=== PATIENT | female | born 1965 | race Caucasian/White ===

== ENCOUNTER 2020-08-22 18:43 | Emergency (ER) | payer SELFPAY ==
[2020-08-22 18:56] VITALS: BP 162/91; PULSE 96; RESP 16; TEMP 37.2; O2SAT 98; BMI 17.4
--- NOTE | 2020-08-22 19:05 | PC.NURSE ---
TDAP GIVEN IN RIGHT DELTOID AT THIS TIME. LOT #[id number] EXP. 05/12/22
[2020-08-22 19:52] VITALS: BP 162/91; PULSE 96; RESP 16; TEMP 37.2; O2SAT 98
--- NOTE | 2020-08-22 20:04 | HMH.EDUTC ---
[facility] [place] Disposition Clinical Impression: Laceration of left index finger Qualifiers: Encounter type: initial encounter Damage to nail status: without damage Foreign body presence: without foreign body Qualified Code(s): S61.211A - Laceration without foreign body of left index finger without damage to nail, initial encounter Disposition: Home, Self-Care Condition on Discharge: Good Instructions: How to Care for a Laceration After Repair, Laceration Repair Additional Instructions: Keep the wound clean and dry. Keep a dressing on it if she is going to be getting it dirty. Watch the for signs of infection, such as redness, swelling, drainage, fever. etc. Give tylenol or ibuprofen for pain. Follow up with her regular doctor. Return in 7 to 10 days to have the sutures removed. Prescriptions: cephALEXin [Keflex 500mg Cap] 500 mg PO Q6H 7 Days #28 cap Transmission Status: Received by [facility] Referrals: PCP,No [Non-Staff] - Time of Disposition: 20:11 Medical Decision Making - Medical Records Medical records reviewed: No: I reviewed the patient's medical records. - Sadiq Inquiry Pt receiving controlled substance: No Vital Signs: 08/22/20 18:56 08/22/20 19:52 Temperature 99.0 F 99.0 F Temperature Source Oral Pulse Rate 96 H Pulse Rate [Right] 96 H Respiratory Rate 16 16 Blood Pressure 162/91 H Blood Pressure [Right Arm] 162/91 H Blood Pressure Mean [Right Arm] 114 Blood Pressure Position [Right Arm] Sitting 02 Sat by Pulse Oximetry 98 Oxygen Delivery Method Room Air Orders (Tests/Meds): ED MEDICATIONS Discontinued Medications Generic Name Dose Route Start Last Admin Trade Name Ronen PRN Reason Stop Dose Admin Ibuprofen 800 mg 08/22/20 20:05 08/22/20 20:05 Ibuprofen 400 Mg Tablet PO 08/22/20 20:06 800 mg ONCE ONE Administration [facility] [place] HPI - General Stated complaint: AO 08/22 @1744 lac to l hand index finger Time Seen by Provider: 08/22/20 20:04 Mode of Arrival: Ambulatory Source of Information: Patient Limitations: No Limitations Description of Symptoms (Recalled from Triage Doc. by RN): Pt has laceration to left index from knife, bleeding controlled - History of Present Illness Provider Complaint: She states that she was trying to open a package with a steak knife when she slipped and cut her left index finger. The laceration is close to the end of the finger on the palmar and medial aspect. - Related Data Previous Rx's Medication Instructions Recorded cephALEXin [Keflex 500mg Cap] 500 mg PO Q6H 7 Days #28 cap 08/22/20 Allergies Allergy/AdvReac Type Severity Reaction Status Date / Time No Known Allergies Allergy Verified 08/22/20 19:01 [facility] History - Hepatitis A Screen Attestation statement:: This patient has been screened for Hepatitis A risk factors. I have reviewed the patient's past medical history: Yes ROS Obtained: Yes All systems reviewed & no additional complaints - Constitutional Constitutional: Reports system reviewed and no additional complaints, except as docu - Integumentary/Breasts Skin/Breast: Reports as per HPI Physical Exam - General General appearance: alert, in no apparent distress - Head Head exam: atraumatic, normocephalic, normal inspection - Eye Eye exam: Present: normal appearance, PERRL, EOMI - ENT ENT exam: Present: normal exam, normal oropharynx, mucous membranes moist, TM's normal bilaterally, normal external ear exam - Neck Neck exam: Present: normal inspection, full ROM, trachea midline. Absent: meningismus, lymphadenopathy - Chest Chest inspection: Present: normal inspection, symmetric chest wall rise. Absent: tenderness - Respiratory Respiratory exam: Present: normal lung sounds bilaterally. Absent: respiratory distress - Cardiovascular Cardiovascular exam: Present: regular rate, normal rhythm. Absent: JVD - Abdominal Exam Abdominal exam: Present: soft, n
== END 2020-08-22 20:16 | disposition home or self-care (01) ==
PROVIDERS: Emergency Provider Nurse Practitioner Family; PCP Family Medicine
DX: S61.211A Laceration without foreign body of left index finger without damage to nail, initial encounter (principal); W26.0XXA Contact with knife, initial encounter; Y92.010 Kitchen of single-family (private) house as the place of occurrence of the external cause; Z23 Encounter for immunization
CPT/HCPCS: 12001; 90471; 99203

== ENCOUNTER 2020-09-01 11:24 | Emergency (ER) | payer OTHER, SELFPAY ==
[2020-09-01 11:40] VITALS: BP 135/80; PULSE 98; RESP 18; TEMP 36.4; O2SAT 99; BMI 17.4
[2020-09-01 11:45] VITALS: BP 135/80; PULSE 98; RESP 18; TEMP 36.4; O2SAT 99
== END 2020-09-01 11:46 | disposition home or self-care (01) ==
PROVIDERS: Emergency Provider Nurse Practitioner Family; PCP Family Medicine
DX: S61.211D Laceration without foreign body of left index finger without damage to nail, subsequent encounter (principal)

== ENCOUNTER 2020-09-11 12:50 | Emergency (ER) | payer SELFPAY ==
[2020-09-11 13:05] VITALS: BP 154/97; PULSE 91; RESP 14; TEMP 36.2; O2SAT 99; BMI 17.4
--- NOTE | 2020-09-11 13:22 | HMH.EDUTC ---
[facility] [place] Disposition Clinical Impression: URI (upper respiratory infection) Qualifiers: URI type: unspecified URI Qualified Code(s): J06.9 - Acute upper respiratory infection, unspecified Disposition: Home, Self-Care Condition on Discharge: Good Instructions: DI for COVID-19 (Suspected or Confirmed ), Coronavirus Disease 2019, Preventing the Spread of Coronavirus Discharge Instructions, Sore Throat, DI for Sinusitis Additional Instructions: *Monitor Temp, Over the counter Motrin or Tylenol as directed/as needed Tylenol every 4 hours and Motrin every 6 hours (as long as your family doctor has told you that you can take it) for fever or pain. and straight to ER if unable to lower temp less than 101.0 after medication given *Warm salt water gargles may help to soothe the throat *Throat Lozenges *Warm fluids like tea with honey may help to soothe the throat *Sleep elevated *Humidifier/Vaporizer Follow up IMMEDIATELY for new or worsening symptoms or no Noticeable improvement over the next 48-72 hours. 911 for difficulty breathing or swallowing You were tested for today for COVID19 your test result should be back in the next 24-48 hours, you may call to the [facility] to see if your test results are back in the next 48 hours [phone] [facility] hours are 9am-9pm You was given a handout with instructions for Self Quarantine and Self isolation for while you wait on test results and what to do if they are positive If you are positive the Health Dept will be contacting you also Prescriptions: Fluticasone Propionate [Flonase 50mcg nasal spray 16gm] 1 spr NS DAILY #1 bottle Transmission Status: [facility] Azithromycin [Z-Wilmer 250mg Tab] 250 mg PO DIRECTED #6 tab Transmission Status: Pending to [facility] Referrals: Rasta Constantino [Primary Care Provider] - As needed Forms: Work/School Release Time of Disposition: 13:38 Medical Decision Making - Sadiq Inquiry Pt receiving controlled substance: No Sadiq was queried for this patient: No Vital Signs: 09/11/20 13:05 Temperature 97.2 F L Temperature Source Oral Pulse Rate [Right Brachial] 91 H Respiratory Rate 14 Blood Pressure [Right Arm] 154/97 H Blood Pressure Mean [Right Arm] 116 Blood Pressure Source [Right Arm] Automatic Cuff Blood Pressure Position [Right Arm] Sitting 02 Sat by Pulse Oximetry 99 Oxygen Delivery Method Room Air - Lab Data Lab results reviewed: Yes: I reviewed the patient's lab results. Orders (Tests/Meds): ORDERS Category Date Time Status Covid-19 Nasal PCR Sendout P&C Routine Lab 09/11/20 12:56 Ordered [facility] [place] HPI - General Stated complaint: covid test Time Seen by Provider: 09/11/20 13:22 Mode of Arrival: Ambulatory Source of Information: Patient Limitations: No Limitations Description of Symptoms (Recalled from Triage Doc. by RN): PATIENT C/O HEADACHE, BODY ACHES, SOA, AND COUGH SINCE FRIDAY. REQUESTING COVID TEST HEENT Symptoms (Recalled from RN notes): No Resp Symptoms (Recalled from RN notes): No Skin Symptoms (Recalled from RN notes): No MS Symptoms (Recalled from RN notes): No Functional Status (Recalled from RN notes): WNL - History of Present Illness Provider Complaint: Patient state that she was recently around someone that has tested positive for COVID States that she has been having body aches, chills, feeling feverish, loss of smell, sinus pain and pressure and sore throat for several days so she came in to get checked - Related Data Previous Rx's Medication Instructions Recorded cephALEXin [Keflex 500mg Cap] 500 mg PO Q6H 7 Days #28 cap 08/22/20 Azithromycin [Z-Wilmer 250mg Tab] 250 mg PO DIRECTED #6 tab 09/11/20 Fluticasone Propionate [Flonase 1 spr NS DAILY #1 bottle 09/11/20 50mcg nasal spray 16gm] Allergies Allergy/AdvReac Type Severity Reaction Status Date / Time No Known Allergies Allergy Verified 08/22/20 19:01 - Worker's Comp Is this a Worker's Comp
[2020-09-11 13:43] VITALS: BP 154/97; PULSE 91; RESP 14; TEMP 36.2; O2SAT 99
[2020-09-11 21:06] LABS: UTC Strep Screen (Rapid) Negative (Negative)
[2020-09-12 09:59] LABS: Covid-19 Nasal PCR Sendout P&C NEGATIVE
== END 2020-09-11 13:47 | disposition home or self-care (01) ==
PROVIDERS: Emergency Provider Nurse Practitioner; PCP Family Medicine
DX: Z20.822 Contact with and (suspected) exposure to COVID-19 (principal); J06.9 Acute upper respiratory infection, unspecified
CPT/HCPCS: 87880; 99202; G0463; U0004

== ENCOUNTER 2023-10-20 12:29 | Emergency (ER) | payer OTHER, SELFPAY ==
[2023-10-20 12:29] VITALS: BP 113/59; PULSE 103; RESP 17; TEMP 37.3; O2SAT 95; BMI 19.3
--- NOTE | 2023-10-20 13:17 | PC.NURSE ---
Alissa Sabillon rounded on pt. No needs voiced. Call light within reach.
[2023-10-20 13:21] LABS: Basophils % 0.2 % (0.1-2.0); Eosinophils # 0.1 K/mm3 (0.0-0.4); Eosinophils % 0.6 % (0.1-12.0); Hematocrit 42.2 % (37.0-47.0); Hemoglobin 13.9 g/dL (12.2-16.2); Lymphocytes # 0.5 K/mm3 (0.7-4.5); Lymphocytes % 5.2 % (10-50); MANUAL DIFFERENTIAL MANUAL DIFFERENTIAL (MANUAL DIFF); Mean Corpuscular HGB Conc 32.9 g/dL (31.8-35.4); Mean Corpuscular Hemoglobin 32.3 pg (27.0-31.2); Mean Corpuscular Volume 98.2 fl (81-99); Mean Platelet Volume 7.6 fl (7.4-10.4); Monocytes # 0.1 K/mm3 (0.1-1.0); Monocytes % 0.9 % (1.7-9.3); Neutrophils # 8.2 K/mm3 (1.8-7.8); Neutrophils % 93.2 % (37.0-80.0); Platelet Count 275 K/mm3 (142-424); Red Cell Distribution Width 12.9 % (11.5-17.5); White Blood Count 8.8 K/mm3 (4.8-10.8)
[2023-10-20 13:27] LABS: Chloride 108 mmol/L (98-107); Potassium 3.8 mmoL/L (3.5-5.1); Sodium 136 mmol/L (136-145)
[2023-10-20] MEDS: LACTATED RINGERS 1000ML 1,000 ML 999 ML IV (13:29)
[2023-10-20 13:30] LABS: Alanine Aminotransferase 33 U/L (12-78); Albumin Level 3.7 g/dl (3.5-5.0); Albumin/Globulin Ratio 1.3 (1.1-1.8); Alkaline Phosphatase 86 U/L (38-126); Anion Gap 8.8 mEq/L (5-15); Aspartate Amino Transferase 33 U/L (14-36); Bilirubin,Total 0.7 mg/dl (0.2-1.3); Blood Urea Nitrogen 17 mg/dl (7-17); Calcium 8.7 mg/dl (8.4-10.2); Carbon Dioxide 23 mmol/L (22.0-30.0); Creatinine Clearance Estimated 57 mL/min (50-200); Estimated Glomerular Filt Rate 73 ml/min (>60); GFR (African American) 89 ML/MIN (>60); Globulin 2.8 g/dL (1.3-3.2); Glucose 108 mg/dl (74-100); Lipase 97 U/L (23-300); Lymphocytes % 6 % (10-50); Neutrophils % 94 % (42-76); Platelet Estimate Normal; RBC Morphology Normal; Total Cells Counted 100; Total Protein,Serum 6.5 g/dl (6.3-8.2)
[2023-10-20] MEDS: ONDANSETRON 4MG/2ML VIAL 4 MG IV (13:30)
[2023-10-20] MEDS: KETOROLAC 30MG/ML VIAL 15 MG IV (13:30)
[2023-10-20 14:00] VITALS: BP 91/60; PULSE 95; O2SAT 98
[2023-10-20 14:06] LABS: Microscopic, Urine URINE MICROSCOPIC (MICROSCOPIC)
[2023-10-20 14:08] LABS: Appearance,Urine CLEAR (Clear); Bilirubin,Urine Negative (Negative); Blood, Urine Negative (Negative); Color,Urine YELLOW (Yellow); Glucose,Urine (UA) Negative (Negative); Ketones,Urine Negative (Negative); Leukocyte Esterase,Urine TRACE (Negative); Nitrate,Urine POSITIVE (Negative); PH,Urine 7.5 (5.0-8.5); Protein,Urine Negative (Negative); Specific Gravity, Urine 1.015 (1.005-1.030); Urobilinogen,Urine 0.2 EU/dl (0.2)
[2023-10-20 14:30] LABS: Bacteria,Urine 2+ /lpf
--- NOTE | 2023-10-20 15:00 | CT_ITS ---
FINAL REPORT TECHNIQUE: Axial images through the abdomen and pelvis were performed without contrast.This study was performed with techniques to keep radiation doses as low as reasonably achievable, (ALARA). Individualized dose reduction techniques using automated exposure control or adjustment of mA and/or kV according to the patient's size were employed. CLINICAL HISTORY: hypovolemia, hx stone. FINDINGS: ABDOMEN: There are bilateral lower lobe groundglass airspace opacities, left greater than right which may represent atelectasis. Infectious/inflammatory process not excluded. The heart size is normal. Unenhanced liver is homogeneous. Gallbladder is present. The spleen is normal. No adrenal mass is identified. The aorta is normal in caliber. There is no significant free fluid or adenopathy. There is a large calcification in the left renal hilum measuring at least 36 mm. A separate large stone is seen in the lower pole measuring 17 mm. There is mild to moderate left hydronephrosis. Air is seen within the left ureter and left renal collecting system. Please correlate for recent instrumentation. If no recent instrumentation performed, infectious process not excluded. There are nonobstructing right renal stones. There is no right hydronephrosis. PELVIS: The appendix is not identified. There are no secondary findings of appendicitis. Uterus is present. The urinary bladder is unremarkable. There is no significant free fluid or adenopathy. IMPRESSION: Large obstructing staghorn calculus in the left renal collecting system. Air within the left renal collecting system which may be related to recent procedure. Recommend clinical correlation. Nonobstructing right renal stones. Reviewed, Interpreted and Dictated by Sol Lay MD Transcribed by Johana Babb Authenticated and [facility]
[2023-10-20 16:26] LABS: Lactic Acid 3.1 mmol/L (0.7-2.1)
--- NOTE | 2023-10-20 16:27 | PC.NURSE ---
Addendum entered by Elaine Vaughan, EMT 10/20/23 16:28: put pt on waiting list will call back when bed is available Original Note: called [facility] for urology transfer
[2023-10-20] MEDS: CEFTRIAXONE 1 GM 1 GM in 0.9 % SODIUM CHLORIDE 50 ML IV (16:29)
[2023-10-20 16:30] VITALS: BP 109/70; PULSE 82; O2SAT 97
--- NOTE | 2023-10-20 16:40 | PC.NURSE ---
placed call to [facility] for urology, had images powershared, they will call back.
--- NOTE | 2023-10-20 16:48 | HMH.EDGENADL ---
Discharge Plan Disposition Patient Disposition: Xfer Other Chief Complaint: Abdominal Pain Prescriptions Prescriptions: No Action cefdinir 300 mg capsule 300 mg PO BID 10 Days Qty: 20 0RF methylprednisolone [Medrol (Wilmer)] 4 mg tablets,dose pack 4 mg PO QID Qty: 21 0RF cephalexin 500 MG capsule 500 mg PO Q6H 7 Days Qty: 28 0RF azithromycin 250 MG tablet 250 mg PO DIRECTED Qty: 6 0RF Rx Instructions: Take two (2) tablets on day #1, then one (1) tablet day #2 thru #5 fluticasone propionate 120 SPR/BOT bottle 1 spr NS DAILY Qty: 1 0RF Rx Instructions: Each nostril daily Referrals Follow up/Referrals: Provider,Referral, [Primary Care Provider] - See instructions Clinical Impressions Clinical Impression: Staghorn calculus, Hydronephrosis with renal and ureteral calculous obstruction, Sepsis, Emphysematous pyelonephritis of left kidney Stand Alone Forms Stand Alone Forms: Transfer Record - ED Instructions Patient Instructions: DI for Acute Abdominal Pain Discharge ED Provider: Sonu James General Adult HPI <Sonu James MD - Last Filed: 10/20/23 16:53> General Chief complaint: Abdominal Pain Stated complaint: Flank pain Time Seen by Provider: 10/20/23 13:16 Mode of Arrival: EMS Source of Information: Patient and EMS Limitations: No Limitations Description of Symptoms (Recalled from ER Triage Doc. by RN): pt presents to ED with c/o abdominal pain. symptoms began . pain located in left hip, fever, chills. History of Present Illness HPI narrative: Patient presents with several days of fatigue, left-sided flank pain, gradual in onset, worsening, with associated chills. She states she has a history of urolithiasis that has required lithotripsy in the past. She states she has a headache, describes chills, decreased p.o. intake. No syncope or presyncope. She received Toradol en route and symptoms improved to some degree. Denies any recent antibiotic use. Pain is most pronounced in her left lower quadrant at this time. Related Data Previous Rx's Medication Instructions Recorded cephalexin 500 mg capsule 500 mg PO Q6H 7 days #28 caps 08/22/20 azithromycin 250 mg tablet 250 mg PO DIRECTED #6 tabs 09/11/20 fluticasone propionate 50 1 spr NS DAILY ##1 09/11/20 mcg/actuation nasal spray,suspension cefdinir 300 mg capsule 300 mg PO BID 10 days #20 caps 06/12/23 methylprednisolone 4 mg tablets in 4 mg PO QID 4 doses #21 tabs 06/12/23 a dose pack (Medrol (Wilmer)) Allergies Allergy/AdvReac Type Severity Reaction Status Date / Time No Known Allergies Allergy Verified 08/22/20 19:01 [facility] <Sonu James MD - Last Filed: 10/20/23 16:53> [facility] Disclaimer: The information contained in this section may have been updated after the patient was seen, as this information can be updated by other users. Social History Smoking Status: Current every day smoker alcohol intake: never current occupational status: other Travel in the last 8 weeks: None <Sonu James MD - Last Filed: 10/20/23 16:53> ROS Obtained: Yes All systems reviewed & no additional complaints except as documented Physical Exam <Sonu James MD - Last Filed: 10/20/23 16:53> General General appearance: alert and in no apparent distress Respiratory Respiratory exam: Present normal lung sounds bilaterally; Absent respiratory distress Cardiovascular Cardiovascular exam: Present regular rate and normal rhythm Abdominal Exam Abdominal exam: Present soft and tenderness (Left CVA tenderness to palpation) Neurological Exam Neurological exam: Present alert and oriented X3 Medical Decision Making <Sonu James MD - Last Filed: 10/20/23 16:53> Sadiq Inquiry Pt receiving controlled substance: No Vital Signs: 10/20/23 12:29 10/20/23 14:00 Temperature 99.2 F Temperature Source Oral Pulse Rate 95 H Pulse Rate [Left Radial] 103 H Respiratory Rate 17 Blood Pressure 91/60 L Blood Pressure [Right Arm] 113/59 L Blood Pressure Mean [Right Arm] 77 02 Sat by Pulse Oximetry 95 98 Oxygen Delivery Method Room Air Room Air Lab Data Lab Results 10/20/23 12:51: WBC 8.8, RBC 4.30, Hgb 13.9, Hct 42.2, MCV 98.2, MCH 32.3 H, MCHC 32.9, RDW 12.9, Plt Count 275, MPV 7.6, Neut % (Auto) 93.2 H, Lymph % (Auto) 5.2 L, [place] % (Auto) 0.9 L, Eos % (Auto) 0.6, Baso % (Auto) 0.2, Neut # (Auto) 8.2 H, Lymph # (Auto) 0.5 L, [place] # (Auto) 0.1, Eos # (Auto) 0.1, Baso # (Auto) 0.0, Total Counted 100, Neutrophils % (Manual) 94 H, Lymphocytes % (Manual) 6 L, Platelet Estimate Normal, RBC Morphology Normal, Sodium 136, Potassium 3.8, Chloride 108 H, Carbon Dioxide 23, Anion Gap 8.8, BUN 17, Creatinine 0.80, Estimated Creat Clear 57, Estimated GFR 73, Est GFR ( Amer) 89, Glucose 108 H, Lactate 3.1 H, Calcium 8.7, Total Bilirubin 0.7, AST 33, ALT 33, Alkaline Phosphatase 86, Total Protein 6.5, Albumin 3.7, Globulin 2.8, Albumin/Globulin Ratio 1.3, Lipase 97 10/20/23 14:00: Urine Color Yellow, Urine Appearance Clear, Urine pH 7.5, Ur Specific [place] 1.015, Urine Protein Negative, Urine Glucose (UA) Negative, Urine Ketones Negative, Urine Blood Negative, Urine Nitrate Positive, Urine Bilirubin Negative, Urine Urobilinogen 0.2, Ur Leukocyte Esterase Trace, Urine RBC None, Urine WBC 3-5, Ur Squamous Epith Cells 5-10, Urine Bacteria 2+ 10/20/23 12:51 10/20/23 12:51 Orders (Tests/Meds): ED MEDICATIONS Generic Name Dose Route Start Last Admin Trade Name Freq PRN Reason Stop Dose Admin Ceftriaxone Sodium 1 gm/ 50 mls @ 100 mls/hr 10/20/23 16:15 10/20/23 16:29 Sodium Chloride IV 10/30/23 16:14 100 mls/hr Q24H JOSE Administration Discontinued Medications Generic Name Dose Route Start Last Admin Trade Name Freq PRN Reason Stop Dose Admin Lactated Ringer's 1,000 mls @ 999 mls/hr 10/20/23 13:14 10/20/23 13:29 Lactated Ringer's 1000 Ml Bag IV 10/20/23 14:14 999 mls/hr .Q1H1M ONE Administration Ketorolac Tromethamine 15 mg 10/20/23 13:18 10/20/23 13:30 Ketorolac 30mg/Ml Vial IV 10/20/23 13:19 15 mg ONCE ONE Administration Ondansetron HCl 4 mg 10/20/23 13:18 10/20/23 13:30 Ondansetron 4mg/2ml Vial IV 10/20/23 13:19 4 mg ONCE ONE Administration ORDERS Category Date Time Status CT abdomen pelvis wo con Stat Cat Scan 10/20/23 15:00 Completed CBC w/Auto Diff [Complete Blood Count Auto Diff] Stat Lab 10/20/23 12:51 Completed CMP [Comprehensive Metabolic Panel] Stat Lab 10/20/23 12:51 Completed Lactic Acid Stat Lab 10/20/23 12:51 Completed Lipase Stat Lab 10/20/23 12:51 Completed Urinalysis and Microscopic Stat Lab 10/20/23 14:00 Completed Blood Culture Stat Micro 10/20/23 16:27 Received Urine Culture Stat Micro 10/20/23 14:00 Received Medical Decision Narrative: Patient with history and exam per above presenting with left-sided flank pain in the setting of known history of urolithiasis. As mentioned above she describes preceding history of chills and has had insidious course of illness. She arrives to the emergency department in no acute distress, pain improved prior to arrival however hypotensive, regular rate and rhythm, afebrile at this time. Patient was treated with 1 L IV fluids, Toradol, Zofran with improvement of symptoms. Initial workup included CBC, CMP, urinalysis, these were independently visualized and interpreted by me revealing no leukocytosis, creatinine within normal limits, urinalysis with no hematuria, however mild pyuria, bacteriuria, and urine nitrite positive. CT abdomen and pelvis was ordered, completed at time of signout and shows staghorn calculus in the left renal pelvis per my independent visualization and interpretation. Given concern for infected urolithiasis, patient was initiated with ceftriaxone, blood cultures and urine culture sent. Care was transferred to incoming physician Dr. Mon. <Sonali Mon MD - Last Filed: 10/20/23 16:59> Vital Signs: 10/20/23 12:29 10/20/23 14:00 Temperature 99.2 F Temperature Source Oral Pulse Rate 95 H Pulse Rate [Left Radial] 103 H Respiratory Rate 17 Blood Pressure 91/60 L Blood Pressure [Right Arm] 113/59 L Blood Pressure Mean [Right Arm] 77 02 Sat by Pulse Oximetry 95 98 Oxygen Delivery Method Room Air Room Air Lab Data Lab results reviewed: Yes I reviewed the patient's lab results. Lab Results 10/20/23 12:51: WBC 8.8, RBC 4.30, Hgb 13.9, Hct 42.2, MCV 98.2, MCH 32.3 H, MCHC 32.9, RDW 12.9, Plt Count 275, MPV 7.6, Neut % (Auto) 93.2 H, Lymph % (Auto) 5.2 L, [place] % (Auto) 0.9 L, Eos % (Auto) 0.6, Baso % (Auto) 0.2, Neut # (Auto) 8.2 H, Lymph # (Auto) 0.5 L, [place] # (Auto) 0.1, Eos # (Auto) 0.1, Baso # (Auto) 0.0, Total Counted 100, Neutrophils % (Manual) 94 H, Lymphocytes % (Manual) 6 L, Platelet Estimate Normal, RBC Morphology Normal, Sodium 136, Potassium 3.8, Chloride 108 H, Carbon Dioxide 23, Anion Gap 8.8, BUN 17, Creatinine 0.80, Estimated Creat Clear 57, Estimated GFR 73, Est GFR ( Amer) 89, Glucose 108 H, Lactate 3.1 H, Calcium 8.7, Total Bilirubin 0.7, AST 33, ALT 33, Alkaline Phosphatase 86, Total Protein 6.5, Albumin 3.7, Globulin 2.8, Albumin/Globulin Ratio 1.3, Lipase 97 10/20/23 14:00: Urine Color Yellow, Urine Appearance Clear, Urine pH 7.5, Ur Specific [place] 1.015, Urine Protein Negative, Urine Glucose (UA) Negative, Urine Ketones Negative, Urine Blood Negative, Urine Nitrate Positive, Urine Bilirubin Negative, Urine Urobilinogen 0.2, Ur Leukocyte Esterase Trace, Urine RBC None, Urine WBC 3-5, Ur Squamous Epith Cells 5-10, Urine Bacteria 2+ Orders (Tests/Meds): ED MEDICATIONS Generic Name Dose Route Start Last Admin Trade Name Freq PRN Reason Stop Dose Admin Ceftriaxone Sodium 1 gm/ 50 mls @ 100 mls/hr 10/20/23 16:15 10/20/23 16:29 Sodium Chloride IV 10/30/23 16:14 100 mls/hr Q24H JOSE Administration Discontinued Medications Generic Name Dose Route Start Last Admin Trade Name Ronen PRN Reason Stop Dose Admin Lactated Ringer's 1,000 mls @ 999 mls/hr 10/20/23 13:14 10/20/23 13:29 Lactated Ringer's 1000 Ml Bag IV 10/20/23 14:14 999 mls/hr .Q1H1M ONE Administration Ketorolac Tromethamine 15 mg 10/20/23 13:18 10/20/23 13:30 Ketorolac 30mg/Ml Vial IV 10/20/23 13:19 15 mg ONCE ONE Administration Ondansetron HCl 4 mg 10/20/23 13:18 10/20/23 13:30 Ondansetron 4mg/2ml Vial IV 10/20/23 13:19 4 mg ONCE ONE Administration ORDERS Category Date Time Status CT abdomen pelvis wo con Stat Cat Scan 10/20/23 15:00 Completed CBC w/Auto Diff [Complete Blood Count Auto Diff] Stat Lab 10/20/23 12:51 Completed CMP [Comprehensive Metabolic Panel] Stat Lab 10/20/23 12:51 Completed Lactic Acid Stat Lab 10/20/23 12:51 Completed Lipase Stat Lab 10/20/23 12:51 Completed Urinalysis and Microscopic Stat Lab 10/20/23 14:00 Completed Blood Culture Stat Micro 10/20/23 16:27 Received Urine Culture Stat Micro 10/20/23 14:00 Received Medical Decision Narrative: Patient with history and exam per above presenting with left-sided flank pain in the setting of known history of urolithiasis. As mentioned above she describes preceding history of chills and has had insidious course of illness. She arrives to the emergency department in no acute distress, pain improved prior to arrival however hypotensive, regular rate and rhythm, afebrile at this time. Patient was treated with 1 L IV fluids, Toradol, Zofran with improvement of symptoms. Initial workup included CBC, CMP, urinalysis, these were independently visualized and interpreted by me revealing no leukocytosis, creatinine within normal limits, urinalysis with no hematuria, however mild pyuria, bacteriuria, and urine nitrite positive. CT abdomen and pelvis was ordered, completed at time of signout and shows staghorn calculus in the left renal pelvis per my independent visualization and interpretation. Given concern for infected urolithiasis, patient was initiated with ceftriaxone, blood cultures and urine culture sent. Care was transferred to incoming physician Dr. Mon. This is Dr. Mon I took over from Dr. Richter at 3 PM. I went evaluated the patient and she was hypotensive 80s over 60s told me she been having fevers and chills and left flank pain. I personally interpreted the patient CT scan which shows that there is a large staghorn calculus also has some air in her collecting system she has not been recently instrument so this is consistent with emphysematous pyelonephritis. A dose of Rocephin was given by Dr. Richter IV fluids initiated blood cultures and lactate were also sent. Patient is responding well to IV fluids most recently her blood pressure was 109/70. She had a low-grade temp of around 99 but no objective fever. However given her symptoms this is most likely sepsis and she may be bacteremic in the setting of the findings that were seen on the CT scan. I believe that she needs surgical decompression and further evaluation and management of her presumed sepsis. I spoke with [facility] initially and they were full put on a waiting list subsequently spoke with Dr. Lema at [facility] who accepted the patient to [facility] emergency department for possible surgical intervention. Critical Care <Sonu James MD - Last Filed: 10/20/23 16:53> Critical Care Time Critical Care Time: No <Sonali Mon MD - Last Filed: 10/20/23 16:59> Critical Care Time Critical Care Time: Yes Attestation: On 10/20/23, the high probability of a clinically significant, sudden or life threatening deterioration of the following system(s) required my full and direct attention, intervention and personal management. The time I documented below is in addition to time spent performing reported procedures but includes the following listed in this critical care notation. Total Time Total Critical Care Time: 35
[2023-10-20 17:01] VITALS: BP 114/80; PULSE 90; O2SAT 95
--- NOTE | 2023-10-20 17:13 | PC.NURSE ---
Pt updated on POC and that she would getting transferred to [facility]
[2023-10-20 17:30] VITALS: BP 102/59; PULSE 79; O2SAT 97
[2023-10-20 18:20] VITALS: BP 102/59; PULSE 79; RESP 15; TEMP 36.7; O2SAT 97
== END 2023-10-20 18:21 | disposition other institution (70) ==
PROVIDERS: Emergency Provider Emergency Medicine
DX: A41.9 Sepsis, unspecified organism (principal); N13.2 Hydronephrosis with renal and ureteral calculous obstruction; N12 Tubulo-interstitial nephritis, not specified as acute or chronic; R10.9 Unspecified abdominal pain; M25.552 Pain in left hip; R53.83 Other fatigue; R51.9 Headache, unspecified; R68.83 Chills (without fever); F17.200 Nicotine dependence, unspecified, uncomplicated
CPT/HCPCS: 74176; 80053; 81001; 83605; 83690; 85007; 85025; 87040; 87086; 96361; 96374; 96375; 99291; J0696; J2405